=== PATIENT | female | born 1985 | race Asian ===

== ENCOUNTER → 2020-12-10 | Outpatient (CLI) | payer OTHER ==
--- NOTE | 2020-12-10 09:53 | XR ---
EXAMINATION TYPE: XR chest 2V DATE OF EXAM: 12/10/2020 COMPARISON: NONE TECHNIQUE: PA and lateral views submitted. HISTORY: Preemployment FINDINGS: The lungs are clear and there is no pneumothorax, pleural effusion, or focal pneumonia. Preemployme nt heart size normal. No overt failure. IMPRESSION: 1. No acute process.
== END | disposition home or self-care (01) ==
LOC: RADXRMAIN 08:59
PROVIDERS: ATTEND Emergency Medicine
DX: Z02.1 Encounter for pre-employment examination (principal)
CPT/HCPCS: 71046